=== PATIENT | male | born 2000 | race Caucasian/White ===

== ENCOUNTER 2023-09-07 13:23 | Outpatient (AMB) | payer OTHER, SELFPAY ==
[2023-09-07 13:27] VITALS: BP 130/88; PULSE 81; O2SAT 98; BMI 26.0
--- NOTE | 2023-09-07 13:27 | MHC.PC.OV ---
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 Allergies No Known Allergies Allergy (Verified 09/07/23 13:28) Medication List - Last Reconciled 09/07/23 by Irvin Agee MD finasteride 5 mg PO DAILY Tobacco use date assessed: 09/07/23 Dental Screening Dental Screen Date: 09/07/23 Did you have a dental visit in the last 12 months?: Yes Did you have a dental problem in the last 6 months where you did not have access to dental care?: No Was dental information given to patient?: Patient has dentist HPI SMALL BUSINESS DIRECTOR/ Requesting PE HPI Details Patient is 23-year-old gentleman came in today [facility] and physical exam appointment Patient have long standing history of anxiety but has never taken any medications He is now interested in treatment, both therapy and medication His anxiety is more social related, present with fever nervousness and epigastric discomfort I am starting him on fluoxetine 10 mg He also have history of acid reflux was given medication few years ago by a different prescriber omeprazole 20 mg Which patient took for a month and felt better but then he stopped and his symptoms came back I have sent omeprazole 20 mg to be taken 2 times a day for 3 months and we will re-evaluate after that to see if he still needs it for b.i.d. or once a day Also would recommend diet-controlled avoid acidic foods and alcoholic beverages. Lab order placed to be done fasting Follow-up 3 wks [facility] Social History Housing: Apartment Patient Tobacco Use Status: Never used Tobacco e-Cigarette/Vaping Use: Never Used Current occupational status: employed Cognitive needs: No Hearing needs: No Vision needs: No Questionnaire PHQ-9 Over the last 2 weeks, how often have you been bothered by any of the following problems? 1. Little interest or pleasure in doing things: several days 2. Feeling down, depressed, or hopeless: more than half the days 3. Trouble falling or staying asleep, or sleeping too much: nearly every day 4. Feeling tired or having little energy: nearly every day 5. Poor appetite or overeating: not at all 6. Feeling bad about yourself - or that you are a failure or have let yourself or your family down: nearly every day 7. Trouble concentrating on things, such as reading the newspaper or watching television: several days 8. Moving or speaking so slowly that other people could have noticed. Or the opposite - being so fidgety or restless that you have been moving around a lot more than usual: several days 9. Thoughts that you would be better off or of hurting yourself in some way: several days Total score: 15 Depression Screening Interpretation: Positive Depression Screening Follow-up: New Medication prescribed Depression Screening Done: Yes 92097 - PHQ-9 Billing: Yes Source: Developed by Drs. Rich Ramsay, Armida Berg, Isauro Villarreal and colleagues, with an educational gabriel from [employer]. Thrive Questionnaire Date Thrive assessed: 09/07/23 I am a: Patient What is your living situation today?: I have a steady place to live Within the past 12 months, did the food you bought not last and you didn't have the money to get more?: Never true Within the past 12 months, did you worry whether your food would run out before you got money to buy more?: Never true Do you have trouble paying for medicines?: No Do you have trouble getting transportation to medical appointments?: No Do you have trouble paying your heating and electricity bill?: No Do you have trouble taking care of your child, family member or friend?: No Do you have trouble with day-to-day activities such as bathing, preparing meals, shopping, managing finances, etc.?: No Are you currently unemployed and looking for a job?: No Are you interested in more education?: Yes Please select the resources that you would like help with: None Currently or been in a relationship where the following occur: no concerns reported AUDIT C Alcohol Use Questionnaire (AUDIT-C) 1. How often do you have a drink containing alcohol?: Monthly or less 2. How many drinks containing alcohol do you have on a typical day when you are drinking?: 1 or 2 3. How often do you have six or more drinks on one occasion?: Never Total Score: 1 Score Reviewed/Action Taken: Yes DANUTA-7 AMB Questionnaire DANUTA-7 Date DANUTA - 7 assessed: 09/07/23 Feeling nervous, anxious, or on edge: 3 = Nearly every day Not being able to stop or control worryin = Nearly every day Worrying too much about different things: 3 = Nearly every day Trouble relaxin = Several days Being so restless that it is hard to sit still: 1 = Several days Becoming easily annoyed or irritable: 0 = Not at all Feeling afraid as if something awful might happen: 3 = Nearly every day Total DANUTA-7 score (0-4 normal; 5-9 mild; 10-14 moderate; 15-21 severe): 14 Source: Developed by Drs. Rich Ramsay, Armida Berg, Isauro Villarreal and colleagues, with an educational gabriel from [employer]. DANUTA-7 Assessment Billing DANUTA-7 Assessment Tool: DANUTA-7 Assessment 27452 Review of Systems Const Denies chills, Denies fever(s) and Denies headache(s) Eyes Denies blurry vision ENT Denies headache(s), Denies nasal discharge, Denies nasal obstruction, Denies odynophagia and Denies sinus pain Card Denies chest pain at rest and Denies chest pain with activity Resp Denies cough and Denies hemoptysis GI Denies diarrhea, Denies odynophagia, Denies vomiting and Denies hematemesis Reports as per HPI Musc Denies abnormal gait Skin/Breast Reports as per HPI Neuro Denies Neuro-related abnormal movements, Denies Abnormal speech present, Denies abnormal gait, Denies headache(s) and Denies Sensory deficit (Neuro) Psych Denies mood swings and Denies paranoia Endo Reports as per HPI Syed/Lymph Reports as per HPI Aller/Immun Reports as per HPI Physical exam (Primary Care) Vital Signs: Last Vital Signs Pulse 81 09/07/23 13:27 BP 130/88 09/07/23 13:27 Pulse Ox 98 09/07/23 13:27 Oxygen Delivery Method Room Air 09/07/23 13:27 BMI result Body Mass Index 26.0 Tobacco/Smoking Status: Tobacco use Status Tobacco use date assessed 09/07/23 09/07/23 13:34 Patient Tobacco Use Status Never used Tobacco 09/07/23 13:34 e-Cigarette/Vaping Use Never Used 09/07/23 13:34 PHQ-9: PHQ-9 Score PHQ-9: Total score 15 09/07/23 13:39 Depression Screening Interpretation: Positive Depression Screening Follow-up: New Medication prescribed Thrive Assessment: Date of Thrive Assessment Date Thrive assessed 09/07/23 09/07/23 13:39 Currently or been in a relationship where the following occur: no concerns reported Const General: cooperative, comfortable and no acute distress Orientation/consciousness: patient oriented x3 HENMT Head: Yes normocephalic and Yes atraumatic Eyes General: appearance normal, both eyes and all related structures Pupils: Equal, round and reactive pupils present EOM: EOMs intact bilaterally Neck Neck: Yes supple and No lymphadenopathy Thyroid: Thyroid normal Lymphatic: no lymphadenopathy noted Chest Breast/axilla palpation: normal palpation of the breasts Resp Effort & Inspection: normal respiratory effort and able to speak in complete sentences Auscultation: clear to auscultation bilaterally Cardio Heart sounds: S1 normal heart sound present and S2 normal heart sound present GI Palpation (GI): Soft to palpation and nontender Auscultation: normal bowel sounds General: Yes no CVA tenderness Back/Spine/Pelvis Back: no CVA tenderness Skin General skin exam: elasticity normal and turgor normal Neuro General: patient oriented x3 and gait normal Cranial nerves: Yes Equal, round and reactive pupils present Speech: No Abnormal speech present Sensory Exam: No Sensory deficit (Neuro) Coordination: tandem gait normal and Romberg test negative Extrem General: Yes normal exam except as noted and No edema Assessment and Plan Assessment & Plan (1) Encounter for general adult medical examination with abnormal findings: Code(s): Z00.01 - Encounter for general adult medical examination with abnormal findings (2) Anxiety, generalized: Code(s): F41.1 - Generalized anxiety disorder (3) Chronic GERD: Code(s): K21.9 - Gastro-esophageal reflux disease without esophagitis Plan Patient is 23-year-old gentleman came in today for his initial in establish care and physical exam appointment Patient have long standing history of anxiety but has never taken any medications He is now interested in treatment, both therapy and medication His anxiety is more social related, present with fever nervousness and epigastric discomfort I am starting him on fluoxetine 10 mg He also have history of acid reflux was given medication few years ago by a different prescriber omeprazole 20 mg Which patient took for a month and felt better but then he stopped and his symptoms came back I have sent omeprazole 20 mg to be taken 2 times a day for 3 months and we will re-evaluate after that to see if he still needs it for b.i.d. or once a day Also would recommend diet-controlled avoid acidic foods and alcoholic beverages. Lab order placed to be done fasting Follow-up 3 wks Orders: Orders Complete Blood Count Auto Diff Today F41.1 - Generalized anxiety disorder, K21.9 - Gastro-esophageal reflux disease without esophagitis, Z00.01 - Encounter for general adult medical examination with abnormal findings Comprehensive [place]. Panel Fast Today F41.1 - Generalized anxiety disorder, K21.9 - Gastro-esophageal reflux disease without esophagitis, Z00.01 - Encounter for general adult medical examination with abnormal findings TSH reflex Free T4 Today F41.1 - Generalized anxiety disorder, K21.9 - Gastro-esophageal reflux disease without esophagitis, Z00.01 - Encounter for general adult medical examination with abnormal findings Lipid Panel Today F41.1 - Generalized anxiety disorder, K21.9 - Gastro-esophageal reflux disease without esophagitis, Z00.01 - Encounter for general adult medical examination with abnormal findings Medications: New fluoxetine 10 mg PO DAILY 30 caps 0RF omeprazole 20 mg PO BID 180 caps 0RF 90 days Coding Level of Care Code New Pt Prev Care 18-39yr(98059 Diagnoses Encounter for general adult medical examination with abnormal findings Z00.01 Anxiety, generalized F41.1 Chronic GERD K21.9 Additional Codes DANUTA-7 Assessment Billing - DANUTA-7 Assessment Tool: DANUTA-7 Assessment [id number] ([id number])
== END 2023-09-07 13:53 | disposition home or self-care (01) ==
PROVIDERS: PCP Internal Medicine; Visit Provider Internal Medicine
DX: Z00.00 Encounter for general adult medical examination without abnormal findings (principal); F41.1 Generalized anxiety disorder; K21.9 Gastro-esophageal reflux disease without esophagitis
CPT/HCPCS: 96127; 99385

== ENCOUNTER 2023-09-20 13:44 | Outpatient (REF) | payer OTHER, SELFPAY ==
[2023-09-20 16:07] LABS: MANUAL DIFF FLAG NO
[2023-09-20 16:27] LABS: Basophils Absolute Auto 0.1 X10*3/uL (0.0-0.2); Basophils Percent Auto 1.3 % (0-2); Eosinophils Absolute Auto 0.1 X10*3/uL (0.0-0.4); Eosinophils Percent Auto 2.1 % (0-4); Hematocrit 43.3 % (42.0-52.0); Hemoglobin 14.6 g/dl (14.0-18.0); Imm Gran Abs Auto 0.01 X10*3/uL (0.00-0.03); Imm Gran Pct Auto 0.2 % (0.0-0.4); Lymphocytes Absolute Auto 2.2 X10*3/uL (1.2-4.9); Lymphocytes Percent Auto 46.2 % (20-40); Mean Corpuscular HGB Conc 33.7 g/dl (31.0-36.0); Mean Corpuscular Hemoglobin 29.7 pg (27.0-33.0); Mean Corpuscular Volume 88.2 fL (80.0-98.0); Monocytes Absolute Auto 0.5 X10*3/uL (0.1-1.2); Monocytes Percent Auto 10.6 % (2-11); Neutrophils Absolute Auto 1.9 x10*3/uL (2.0-8.3); Neutrophils Percent Auto 39.6 % (45-73); Platelet Count 273 X10*3/uL (160-400); Red Blood Count 4.91 X10*6/uL (4.60-5.80); Red Cell Distribution Width 12.1 % (11.0-16.0); White Blood Count 4.7 X10*3/uL (4.8-10.8)
[2023-09-20 16:32] LABS: Alanine Aminotransferase 21 U/L (0-40); Albumin Level 4.4 g/dL (3.5-5.0); Alkaline Phosphatase 57 U/L (39-117); Anion Gap 11 (12-20); Aspartate Amino Transferase 17 U/L (5-37); Bilirubin Total 1.2 mg/dL (0.0-1.0); Blood Urea Nitrogen 9 mg/dL (9-16); Calcium 9.2 mg/dL (8.4-10.2); Carbon Dioxide 28 mmol/L (22-29); Chloride 106 mmol/L (96-108); Cholesterol 119 mg/dL (<200); Estimated Glomerular Filt Rate > 60; Glucose Fasting 91 mg/dL (60-99); HDL Cholesterol 41 mg/dL (>40); LDL Cholesterol Calculated 70 mg/dL (<100); Potassium 3.8 mmol/L (3.3-5.1); Sodium 141 mmol/L (135-145); Triglycerides 44 mg/dL (<150)
[2023-09-20 16:50] LABS: TSH reflex Free T4 0.92 uIU/mL (0.32-4.0)
== END 2023-09-20 13:45 | disposition home or self-care (01) ==
LOC: HO.HMGCLDS 13:44
PROVIDERS: PCP Internal Medicine; Visit Provider Internal Medicine
DX: Z00.01 Encounter for general adult medical examination with abnormal findings (principal); F41.1 Generalized anxiety disorder; K21.9 Gastro-esophageal reflux disease without esophagitis
CPT/HCPCS: 36415; 80053; 80061; 84443; 85025

== ENCOUNTER 2023-09-25 14:08 | Outpatient (AMB) | payer OTHER, SELFPAY ==
[2023-09-25 14:09] VITALS: BP 124/84; PULSE 79; O2SAT 97; BMI 25.5
--- NOTE | 2023-09-25 14:09 | A.OFFPC_ITS ---
Vital Signs 09/25/23 14:09 Height 5 ft 7 in Weight 163 lb BMI 25.5 BP 124/84 Blood Pressure Location Rt brachial Position Sitting Pulse 79 Pulse Source Pulse Oximeter Pulse Oximetry (%) 97 Oxygen Delivery Method Room Air Intake Visit Reasons: 3W follow up Allergies No Known Allergies Allergy (Verified 09/25/23 14:09) Medication List - Last Reconciled 09/25/23 by Irvin Agee MD finasteride 5 mg PO DAILY fluoxetine 10 mg PO DAILY omeprazole 20 mg PO BID 90 days Tobacco use date assessed: 09/25/23 Dental Screening Dental Screen Date: 09/25/23 Did you have a dental visit in the last 12 months?: Yes Did you have a dental problem in the last 6 months where you did not have access to dental care?: No Was dental information given to patient?: Patient has dentist HPI 3W follow up HPI Details Patient came in today to go over his labs Paperwork filled for his job And to follow-up on anxiety He is taking fluoxetine 10 mg and is tolerating medication however continued to have anxiety I have increased the dose to 20 mg. Patient was started on omeprazole b.i.d. last visit when he verbalized to feeling acid reflux and epigastric discomfort He is still having symptoms, I have placed a referral for him to see gastroenterology We will book a follow-up appointment in 2 and half month for anxiety. Labs reviewed with the patient his total bili is slightly elevated but other liver enzymes are within normal limit. [facility] Social History Housing: Apartment Patient Tobacco Use Status: Never used Tobacco e-Cigarette/Vaping Use: Never Used Current occupational status: employed Cognitive needs: No Hearing needs: No Vision needs: No Questionnaire Thrive Questionnaire Date Thrive assessed: 09/07/23 DANUTA-7 AMB Questionnaire DANUTA-7 Date DANUTA - 7 assessed: 09/07/23 Source: Developed by Drs. Rich Ramsay, Armida Berg, Isauro Villarreal and colleagues, with an educational gabriel from [employer]. Review of Systems Const Denies chills and Denies fever(s) ENT Denies epistaxis and Denies nasal discharge Card Denies chest pain Resp Denies chest congestion, Denies cough and Denies hemoptysis GI Denies diarrhea and Denies nausea Skin/Breast Denies rash Neuro Reports no additional complaints Psych Reports no additional complaints Endo Reports no additional complaints Physical exam (Primary Care) Vital Signs: Last Vital Signs Pulse 79 09/25/23 14:09 BP 124/84 09/25/23 14:09 Pulse Ox 97 09/25/23 14:09 Oxygen Delivery Method Room Air 09/25/23 14:09 BMI result Body Mass Index 25.5 Tobacco/Smoking Status: Tobacco use Status Tobacco use date assessed 09/25/23 09/25/23 14:14 Patient Tobacco Use Status Never used Tobacco 09/25/23 14:14 e-Cigarette/Vaping Use Never Used 09/25/23 14:14 Thrive Assessment: Date of Thrive Assessment Date Thrive assessed 09/07/23 09/25/23 14:14 Const General: cooperative, comfortable and no acute distress Orientation/consciousness: patient oriented x3 HENMT Head: Yes normocephalic Eyes General: appearance normal, both eyes and all related structures Neck Neck: Yes supple Resp Effort & Inspection: normal respiratory effort, no cough and no stridor Cardio Rhythm: regular rhythm Heart sounds: S1 normal heart sound present and S2 normal heart sound present Skin General skin exam: turgor normal Neuro General: patient oriented x3, tone normal and moves all extremities Extrem Right lower extremity: no edema Left lower extremity: no edema Assessment and Plan Assessment & Plan (1) Chronic GERD: Code(s): K21.9 - Gastro-esophageal reflux disease without esophagitis (2) Epigastric discomfort: Code(s): R10.13 - Epigastric pain (3) Anxiety, generalized: Code(s): F41.1 - Generalized anxiety disorder Plan Patient came in today to go over his labs Paperwork filled for his job And to follow-up on anxiety He is taking fluoxetine 10 mg and is tolerating medication however continued to have anxiety I have increased the dose to 20 mg. Patient was started on omeprazole b.i.d. last visit when he verbalized to feeling acid reflux and epigastric discomfort He is still having symptoms, I have placed a referral for him to see gastroenterology We will book a follow-up appointment in 2 and half month for anxiety. Labs reviewed with the patient his total bili is slightly elevated but other liver enzymes are within normal limit. Orders: Referrals Gastroenterology Referral K21.9 - Gastro-esophageal reflux disease without esophagitis, R10.13 - Epigastric pain Medications: Changed From fluoxetine 10 mg PO DAILY 30 caps 0RF To fluoxetine 20 mg PO DAILY 90 caps 0RF 90 days Coding Level of Care Code Est Pt Level 4 (37369) Diagnoses Chronic GERD K21.9 Epigastric discomfort R10.13 Anxiety, generalized F41.1
== END 2023-09-25 14:43 | disposition home or self-care (01) ==
PROVIDERS: PCP Internal Medicine; Visit Provider Internal Medicine
DX: K21.9 Gastro-esophageal reflux disease without esophagitis (principal); R10.13 Epigastric pain; F41.1 Generalized anxiety disorder
CPT/HCPCS: 99214

== ENCOUNTER 2023-12-13 07:36 | Outpatient (AMB) | payer OTHER, SELFPAY ==
--- NOTE | 2023-12-13 08:40 | MHC.PC.OV ---
Vital Signs 12/13/23 08:41 Height 5 ft 7 in Intake Visit Reasons: 2 month fu ([phone]) Allergies No Known Allergies Allergy (Verified 09/25/23 14:09) Medication List - Last Reconciled 12/13/23 by Irvin Agee MD finasteride 5 mg PO DAILY fluoxetine 20 mg PO DAILY 90 days omeprazole 20 mg PO BID 90 days Tobacco use date assessed: 12/13/23 Dental Screening Dental Screen Date: 12/13/23 Did you have a dental visit in the last 12 months?: Yes Did you have a dental problem in the last 6 months where you did not have access to dental care?: No Was dental information given to patient?: Patient has dentist HPI 2 month fu ([phone]) HPI Details Patient is 23-year-old male who suffers from anxiety and depression Initially he did well with fluoxetine, but today he tells me that he is having suicidal ideations, I am stopping the fluoxetine Patient is trying to get in touch with therapist He tells me that he will not implement any of these thoughts I am changing the medication to Seroquel 25 mg patient is to start taking that at night Continue with omeprazole up to 2 times a day as needed, patient never saw technical healthcare consultant, he says that the medication is helping him He is also taking fenestrated for hair loss and is requesting a script which I have sent for him Follow-up 3 weeks for starting Seroquel Patient was notifi that he is to reach to me 1st if he start planning to hurt him self I will also send message to our behavior health coordinator so she can not call the patient [facility] Social History Housing: Apartment Patient Tobacco Use Status: Never used Tobacco e-Cigarette/Vaping Use: Never Used Current occupational status: employed Cognitive needs: No Hearing needs: No Vision needs: No Questionnaire PHQ-9 Over the last 2 weeks, how often have you been bothered by any of the following problems? 1. Little interest or pleasure in doing things: not at all 2. Feeling down, depressed, or hopeless: not at all 3. Trouble falling or staying asleep, or sleeping too much: more than half the days 4. Feeling tired or having little energy: more than half the days 5. Poor appetite or overeating: not at all 6. Feeling bad about yourself - or that you are a failure or have let yourself or your family down: several days 7. Trouble concentrating on things, such as reading the newspaper or watching television: not at all 8. Moving or speaking so slowly that other people could have noticed. Or the opposite - being so fidgety or restless that you have been moving around a lot more than usual: not at all 9. Thoughts that you would be better off or of hurting yourself in some way: not at all Total score: 5 Depression Screening Interpretation: Negative Depression Screening Done: Yes [id number] - PHQ-9 Billing: Yes Source: Developed by Drs. Rich Ramsay, Armida Berg, Isauro Villarreal and colleagues, with an educational gabriel from [employer]. Thrive Questionnaire Date Thrive assessed: 12/13/23 I am a: Patient What is your living situation today?: I have a steady place to live Within the past 12 months, did the food you bought not last and you didn't have the money to get more?: Never true Within the past 12 months, did you worry whether your food would run out before you got money to buy more?: Never true Do you have trouble paying for medicines?: No Do you have trouble getting transportation to medical appointments?: No Do you have trouble paying your heating and electricity bill?: No Do you have trouble taking care of your child, family member or friend?: No Do you have trouble with day-to-day activities such as bathing, preparing meals, shopping, managing finances, etc.?: No Are you currently unemployed and looking for a job?: No Are you interested in more education?: No Please select the resources that you would like help with: None Currently or been in a relationship where the following occur: no concerns reported THRIVE Score: 0 AUDIT C Alcohol Use Questionnaire (AUDIT-C) 1. How often do you have a drink containing alcohol?: Monthly or less 2. How many drinks containing alcohol do you have on a typical day when you are drinking?: 3 or 4 3. How often do you have six or more drinks on one occasion?: Never Total Score: 2 Score Reviewed/Action Taken: Yes DANUTA-7 AMB Questionnaire DANUTA-7 Date DANUTA - 7 assessed: 09/07/23 Feeling nervous, anxious, or on edge: 3 = Nearly every day Not being able to stop or control worryin = Nearly every day Worrying too much about different things: 3 = Nearly every day Trouble relaxin = More than half the days Being so restless that it is hard to sit still: 2 = More than half the days Becoming easily annoyed or irritable: 0 = Not at all Feeling afraid as if something awful might happen: 1 = Several days Total DANUTA-7 score (0-4 normal; 5-9 mild; 10-14 moderate; 15-21 severe): 14 Source: Developed by Drs. Rich Ramsay, Armida Berg, Isauro Villarreal and colleagues, with an educational gabriel from [employer]. DNAUTA-7 Assessment Billing DANUTA-7 Assessment Tool: DANUTA-7 Assessment 95497 Review of Systems Const Denies chills and Denies fever(s) ENT Denies epistaxis and Denies nasal discharge Card Denies chest pain Resp Denies chest congestion, Denies cough and Denies hemoptysis GI Denies diarrhea and Denies nausea Skin/Breast Denies rash Neuro Reports no additional complaints Psych Reports no additional complaints Endo Reports no additional complaints Physical exam (Primary Care) Tobacco/Smoking Status: Tobacco use Status Tobacco use date assessed 12/13/23 12/13/23 08:41 Patient Tobacco Use Status Never used Tobacco 12/13/23 08:41 e-Cigarette/Vaping Use Never Used 12/13/23 08:41 PHQ-9: PHQ-9 Score PHQ-9: Total score 5 12/13/23 09:29 Depression Screening Interpretation: Negative Thrive Assessment: Date of Thrive Assessment Date Thrive assessed 12/13/23 12/13/23 08:50 Currently or been in a relationship where the following occur: no concerns reported Telehealth Telehealth Location of provider rendering services: practice address Location of patient: address on file Patient Identification confirmed using: Name, : Yes Telehealth method: voice only Patient verbally consented to treatment: Yes Patient verbally consented to billing insurance company: Yes Patient informed of any privacy concerns related to visit: Yes Minutes spent on Phone/Video with Pt.: 16 Assessment and Plan Assessment & Plan (1) Major depression, recurrent: Code(s): F33.9 - Major depressive disorder, recurrent, unspecified Qualifiers: Active/Remission status: currently active Major depression episode severity: severe Psychotic features: without psychotic features Qualified Code(s): F33.2 - Major depressive disorder, recurrent severe without psychotic features (2) Suicidal ideation: Code(s): R45.851 - Suicidal ideations (3) Chronic GERD: Code(s): K21.9 - Gastro-esophageal reflux disease without esophagitis (4) Epigastric discomfort: Code(s): R10.13 - Epigastric pain (5) Anxiety, generalized: Code(s): F41.1 - Generalized anxiety disorder Plan Patient is 23-year-old male who suffers from anxiety and depression Initially he did well with fluoxetine, but today he tells me that he is having suicidal ideations, I am stopping the fluoxetine Patient is trying to get in touch with therapist He tells me that he will not implement any of these thoughts I am changing the medication to Seroquel 25 mg patient is to start taking that at night Continue with omeprazole up to 2 times a day as needed, patient never saw technical healthcare consultant, he says that the medication is helping him He is also taking fenestrated for hair loss and is requesting a script which I have sent for him Follow-up 3 weeks for starting Seroquel Patient was notifi that he is to reach to me 1st if he start planning to hurt him self I will also send message to our behavior health coordinator so she can not call the patient Medications: New quetiapine (Seroquel) 25 mg PO BEDTIME 30 tabs 0RF finasteride 5 mg PO DAILY 90 tabs 0RF Refilled omeprazole 20 mg PO BID 180 caps 0RF 90 days Discontinued fluoxetine Discontinued Reason: Doctor's Order 20 mg PO DAILY 90 days 90 caps 0RF Coding Level of Care Code Tele Est Pt Level 4 (10161) Diagnoses Severe episode of recurrent major depressive disorder, without psychotic features F33.2 Active/Remission status: currently active Major depression episode severity: severe Psychotic features: without psychotic features Suicidal ideation R45.851 Chronic GERD K21.9 Epigastric discomfort R10.13 Anxiety, generalized F41.1 Additional Codes DANUTA-7 Assessment Billing - DANUTA-7 Assessment Tool: DANUTA-7 Assessment 05882 ([id number]) Time Spent (min) 30 Comment 15 with patient, 5 prep, 5 charting, 5 coordination of care
== END 2023-12-13 11:52 | disposition home or self-care (01) ==
LOC: HO.HMGC 07:36
PROVIDERS: PCP Internal Medicine; Visit Provider Internal Medicine
DX: F33.2 Major depressive disorder, recurrent severe without psychotic features (principal); R45.851 Suicidal ideations; K21.9 Gastro-esophageal reflux disease without esophagitis; R10.13 Epigastric pain; F41.1 Generalized anxiety disorder
CPT/HCPCS: 99214

== ENCOUNTER 2023-12-20 08:09 | Outpatient (AMB) | payer OTHER, SELFPAY ==
--- NOTE | 2023-12-20 08:11 | MHC.PC.OV ---
"Intake Visit Reasons: 3 Wk F/u~[phone] Allergies No Known Allergies Allergy (Verified 12/20/23 08:11) Medication List - Last Reconciled 12/20/23 by Irvin Agee MD finasteride 1 mg PO DAILY omeprazole 20 mg PO BID 90 days quetiapine (Seroquel) 25 mg PO BEDTIME Tobacco use date assessed: 12/13/23 HPI 3 Wk F/u~[phone] HPI Details Patient is 23-year-old gentleman with severe depression I started him on Seroquel 25 mg 3 weeks ago Patient tells me that he is feeling much better there are no more suicidal thoughts He is able to sleep better however he feels that the dose is not strong enough We will be increasing it to 50 mg and I will set up another follow-up time in 3 weeks. [facility] Social History Housing: Apartment Patient Tobacco Use Status: Never used Tobacco e-Cigarette/Vaping Use: Never Used Current occupational status: employed Cognitive needs: No Hearing needs: No Vision needs: No Questionnaire Thrive Questionnaire Date Thrive assessed: 12/13/23 DANUTA-7 AMB Questionnaire DANUTA-7 Date DANUTA - 7 assessed: 09/07/23 Source: Developed by Drs. Rich Ramsay, Armida Berg, Isauro Villarreal and colleagues, with an educational gabriel from [employer]. Review of Systems Const Denies chills and Denies fever(s) ENT Denies epistaxis and Denies nasal discharge Card Denies chest pain Resp Denies chest congestion, Denies cough and Denies hemoptysis GI Denies diarrhea and Denies nausea Skin/Breast Denies rash Neuro Reports no additional complaints Psych Reports no additional complaints Endo Reports no additional complaints Physical exam (Primary Care) Tobacco/Smoking Status: Tobacco use Status Tobacco use date assessed 12/13/23 12/20/23 08:11 Patient Tobacco Use Status Never used Tobacco 12/20/23 08:11 e-Cigarette/Vaping Use Never Used 12/20/23 08:11 Thrive Assessment: Date of Thrive Assessment Date Thrive assessed 12/13/23 12/20/23 08:11 Telehealth Telehealth Location of provider rendering services: practice address Location of patient: address on file Patient Identification confirmed using: Name, : Yes Telehealth method: voice only Patient verbally consented to treatment: Yes Patient verbally consented to billing insurance company: Yes Patient informed of any privacy concerns related to visit: Yes Minutes spent on Phone/Video with Pt.: 13 Assessment and Plan Assessment & Plan (1) Major depression, recurrent: Code(s): F33.9 - Major depressive disorder, recurrent, unspecified Qualifiers: Active/Remission status: currently active Major depression episode severity: severe Psychotic features: without psychotic features Qualified Code(s): F33.2 - Major depressive disorder, recurrent severe without psychotic features (2) Suicidal ideation: Code(s): R45.851 - Suicidal ideations (3) Anxiety, generalized: Code(s): F41.1 - Generalized anxiety disorder Plan Patient is 23-year-old gentleman with severe depression I started him on Seroquel 25 mg 3 weeks ago Patient tells me that he is feeling much better there are no more suicidal thoughts He is able to sleep better however he feels that the dose is not strong enough We will be increasing it to 50 mg and I will set up another follow-up time in 3 weeks. Medications: Changed From quetiapine (Seroquel) 25 mg PO BEDTIME 30 tabs 0RF To quetiapine 50 mg PO BEDTIME 30 tabs 0RF 30 days Coding Level of Care Code Tele Est Pt Level 3 (14637) Diagnoses Severe episode of recurrent major depressive disorder, without psychotic features F33.2 Active/Remission status: currently active Major depression episode severity: severe Psychotic features: without psychotic features Suicidal ideation R45.851 Anxiety, generalized F41.1"
== END 2023-12-20 16:05 | disposition home or self-care (01) ==
LOC: HO.HMGC 08:09
PROVIDERS: PCP Internal Medicine; Visit Provider Internal Medicine
DX: F33.2 Major depressive disorder, recurrent severe without psychotic features (principal); R45.851 Suicidal ideations; F41.1 Generalized anxiety disorder
CPT/HCPCS: 99213

== ENCOUNTER 2024-01-10 08:28 | Outpatient (AMB) | payer OTHER, SELFPAY ==
--- NOTE | 2024-01-10 09:27 | MHC.PC.OV ---
Intake Visit Reasons: 3 wk F/u~ Allergies No Known Allergies Allergy (Verified 12/20/23 08:11) Medication List - Last Reconciled 01/10/24 by Irvin Agee MD finasteride 1 mg PO DAILY omeprazole 20 mg PO BID 90 days quetiapine 50 mg PO BEDTIME 30 days Tobacco use date assessed: 12/13/23 HPI 3 wk F/u~ HPI Details Patient is feeling much better taking Seroquel 50 mg He tells me that both his brothers and both his parents have a history of depression and his father is taking Seroquel for the past 2 years Patient is questioning if he will be able to get off the medication He will see me back in 3 months and then we will re-evaluate the situation However due to such a strong family history it might be difficult for patient to get off the medication Patient is aware of that. Meanwhile he is to continue with Seroquel 50 mg No side effects PFSH Social History Housing: Apartment Patient Tobacco Use Status: Never used Tobacco e-Cigarette/Vaping Use: Never Used Current occupational status: employed Cognitive needs: No Hearing needs: No Vision needs: No Questionnaire Thrive Questionnaire Date Thrive assessed: 12/13/23 DANUTA-7 AMB Questionnaire DANUTA-7 Date DANUTA - 7 assessed: 09/07/23 Source: Developed by Drs. Rich Ramsay, Armida Berg, Isauro Villarreal and colleagues, with an educational gabriel from [employer]. Review of Systems Const Denies chills and Denies fever(s) ENT Denies epistaxis and Denies nasal discharge Card Denies chest pain Resp Denies chest congestion, Denies cough and Denies hemoptysis GI Denies diarrhea and Denies nausea Skin/Breast Denies rash Neuro Reports no additional complaints Psych Reports no additional complaints Endo Reports no additional complaints Physical exam (Primary Care) Tobacco/Smoking Status: Tobacco use Status Tobacco use date assessed 12/13/23 01/10/24 09:29 Patient Tobacco Use Status Never used Tobacco 01/10/24 09:29 e-Cigarette/Vaping Use Never Used 01/10/24 09:29 Thrive Assessment: Date of Thrive Assessment Date Thrive assessed 12/13/23 01/10/24 09:29 Telehealth Telehealth Location of provider rendering services: practice address Location of patient: address on file Patient Identification confirmed using: Name, : Yes Telehealth method: video (attempted) Patient verbally consented to treatment: Yes Patient verbally consented to billing insurance company: Yes Patient informed of any privacy concerns related to visit: Yes Minutes spent on Phone/Video with Pt.: 13 Assessment and Plan Assessment & Plan (1) Major depression, recurrent: Code(s): F33.9 - Major depressive disorder, recurrent, unspecified Qualifiers: Active/Remission status: currently active Major depression episode severity: severe Psychotic features: without psychotic features Qualified Code(s): F33.2 - Major depressive disorder, recurrent severe without psychotic features (2) Anxiety, generalized: Code(s): F41.1 - Generalized anxiety disorder Plan Patient is feeling much better taking Seroquel 50 mg He tells me that both his brothers and both his parents have a history of depression and his father is taking Seroquel for the past 2 years Patient is questioning if he will be able to get off the medication He will see me back in 3 months and then we will re-evaluate the situation However due to such a strong family history it might be difficult for patient to get off the medication Patient is aware of that. Meanwhile he is to continue with Seroquel 50 mg No side effects No suicidal ideations anymore Medications: Changed From quetiapine 50 mg PO BEDTIME 30 days 30 tabs 0RF To quetiapine 50 mg PO BEDTIME 90 tabs 0RF 90 days Coding Level of Care Code Tele Est Pt Level 3 (15342) Diagnoses Severe episode of recurrent major depressive disorder, without psychotic features F33.2 Active/Remission status: currently active Major depression episode severity: severe Psychotic features: without psychotic features Anxiety, generalized F41.1
== END 2024-01-10 12:36 | disposition home or self-care (01) ==
LOC: HO.HMGC 08:28
PROVIDERS: PCP Internal Medicine; Visit Provider Internal Medicine
DX: F33.2 Major depressive disorder, recurrent severe without psychotic features (principal); F41.1 Generalized anxiety disorder
CPT/HCPCS: 99213

== ENCOUNTER 2024-04-10 06:58 | Outpatient (AMB) | payer OTHER, SELFPAY ==
--- NOTE | 2024-04-10 08:57 | A.OFFPC_ITS ---
Intake Visit Reasons: 3 M f/u depression~ Allergies No Known Allergies Allergy (Verified 04/10/24 09:08) Medication List - Last Reconciled 04/10/24 by Irvin Agee MD finasteride 1 mg PO DAILY omeprazole 20 mg PO BID 90 days quetiapine 50 mg PO BEDTIME 90 days Tobacco use date assessed: 04/10/24 Dental Screening Dental Screen Date: 04/10/24 Did you have a dental visit in the last 12 months?: Yes Did you have a dental problem in the last 6 months where you did not have access to dental care?: No Was dental information given to patient?: Patient has dentist HPI 3 M f/u depression~ HPI Details this is telemed visit f.u Patient has strong family Hx of sever depression and he himself also suffering from same Seroquel has helped him, he is tolerating medcation but has gained wt Patient states since dec he has gained about 20 lbs but he dont want to get off the med, as he is doing so well Psychologically he is also due for labs, order placed Pt notified we will continue med for now, i ll book another visit in 4 wks to see if he is gaining more wt GERD is stable with PPI he is also on fenestride for hair lose all three med refill sent patient is moving in Aug to different [place] [facility] Social History Housing: Apartment Patient Tobacco Use Status: Never used Tobacco e-Cigarette/Vaping Use: Never Used Current occupational status: employed Cognitive needs: No Hearing needs: No Vision needs: No Questionnaire Thrive Questionnaire Date Thrive assessed: 12/13/23 AUDIT C Alcohol Use Questionnaire (AUDIT-C) 1. How often do you have a drink containing alcohol?: Never 3. How often do you have six or more drinks on one occasion?: Never Total Score: 0 Score Reviewed/Action Taken: Yes DANUTA-7 AMB Questionnaire DANUTA-7 Date DANUTA - 7 assessed: 09/07/23 Source: Developed by Drs. Rich Ramsay, Armida Berg, Isauro Villarreal and colleagues, with an educational gabriel from [employer]. Review of Systems Const Denies chills and Denies fever(s) ENT Denies epistaxis and Denies nasal discharge Card Denies chest pain Resp Denies chest congestion, Denies cough and Denies hemoptysis GI Denies diarrhea and Denies nausea Skin/Breast Denies rash Neuro Reports no additional complaints Psych Reports no additional complaints Endo Reports no additional complaints Physical exam (Primary Care) Tobacco/Smoking Status: Tobacco use Status Tobacco use date assessed 12/13/23 04/10/24 08:57 Patient Tobacco Use Status Never used Tobacco 04/10/24 08:57 e-Cigarette/Vaping Use Never Used 04/10/24 08:57 Thrive Assessment: Date of Thrive Assessment Date Thrive assessed 12/13/23 04/10/24 08:57 Telehealth Telehealth Telehealth Platform: [employer] Location of provider rendering services: practice address Location of patient: address on file Patient Identification confirmed using: Name, : Yes Telehealth method: video (attempted) Patient verbally consented to treatment: Yes Patient verbally consented to billing insurance company: Yes Patient informed of any privacy concerns related to visit: Yes Minutes spent on Phone/Video with Pt.: 14 Assessment and Plan Assessment & Plan (1) Major depression, recurrent: Code(s): F33.9 - Major depressive disorder, recurrent, unspecified Qualifiers: Active/Remission status: currently active Major depression episode severity: severe Psychotic features: without psychotic features Qualified Code(s): F33.2 - Major depressive disorder, recurrent severe without psychotic features (2) Anxiety, generalized: Code(s): F41.1 - Generalized anxiety disorder (3) Chronic GERD: Code(s): K21.9 - Gastro-esophageal reflux disease without esophagitis (4) Weight gain: Code(s): R63.5 - Abnormal weight gain Plan this is telemed visit f.u Patient has strong family Hx of sever depression and he himself also suffering from same Seroquel has helped him, he is tolerating medcation but has gained wt Patient states since dec he has gained about 20 lbs but he dont want to get off the med, as he is doing so well Psychologically he is also due for labs, order placed Pt notified we will continue med for now, i ll book another visit in 4 wks to see if he is gaining more wt GERD is stable with PPI he is also on fenestride for hair lose all three med refill sent patient is moving in Oct to different [place] Orders: Orders Complete Blood Count Auto Diff Today F33.2 - Major depressive disorder, recurrent severe without psychotic features, F41.1 - Generalized anxiety disorder, K21.9 - Gastro-esophageal reflux disease without esophagitis, R63.5 - Abnormal weight gain Comprehensive Met. Panel Today F33.2 - Major depressive disorder, recurrent severe without psychotic features, F41.1 - Generalized anxiety disorder, K21.9 - Gastro-esophageal reflux disease without esophagitis, R63.5 - Abnormal weight gain TSH reflex Free T4 Today F33.2 - Major depressive disorder, recurrent severe w ithout psychotic features, F41.1 - Generalized anxiety disorder, K21.9 - Gastro- esophageal reflux disease without esophagitis, R63.5 - Abnormal weight gain Coding Level of Care Code Tele Est Pt Level 3 (89931) Diagnoses Severe episode of recurrent major depressive disorder, without psychotic features F33.2 Active/Remission status: currently active Major depression episode severity: severe Psychotic features: without psychotic features Anxiety, generalized F41.1 Chronic GERD K21.9 Weight gain R63.5
== END 2024-04-10 13:41 | disposition home or self-care (01) ==
LOC: HO.HMGC 06:58
PROVIDERS: PCP Internal Medicine; Visit Provider Internal Medicine
DX: K21.9 Gastro-esophageal reflux disease without esophagitis (principal); F33.2 Major depressive disorder, recurrent severe without psychotic features; F41.1 Generalized anxiety disorder; R63.5 Abnormal weight gain
CPT/HCPCS: 99213

== ENCOUNTER 2024-05-08 08:16 | Outpatient (AMB) | payer OTHER, SELFPAY ==
--- NOTE | 2024-05-08 08:36 | MHC.PC.OV ---
Intake Visit Reasons: 4Wk F/u~ [phone] Allergies No Known Allergies Allergy (Verified 04/10/24 09:08) Tobacco use date assessed: 04/10/24 Dental Screening Dental Screen Date: 04/10/24 [facility] Social History Housing: Apartment Patient Tobacco Use Status: Never used Tobacco e-Cigarette/Vaping Use: Never Used Current occupational status: employed Cognitive needs: No Hearing needs: No Vision needs: No Questionnaire Thrive Questionnaire Date Thrive assessed: 12/13/23 DANUTA-7 AMB Questionnaire DANUTA-7 Date DANUTA - 7 assessed: 09/07/23 Source: Developed by Drs. Rich Ramsay, Armida Berg, Isauro Villarreal and colleagues, with an educational gabriel from [employer]. Physical exam (Primary Care) Tobacco/Smoking Status: Tobacco use Status Tobacco use date assessed 04/10/24 04/10/24 09:08 Patient Tobacco Use Status Never used Tobacco 04/10/24 08:57 e-Cigarette/Vaping Use Never Used 04/10/24 08:57 Thrive Assessment: Date of Thrive Assessment Date Thrive assessed 12/13/23 04/10/24 08:57 Coding
--- NOTE | 2024-05-08 09:31 | MHC.PC.OV ---
Intake Visit Reasons: 4Wk F/u~ [phone] Allergies No Known Allergies Allergy (Verified 04/10/24 09:08) Medication List - Last Reconciled 05/08/24 by Irvin Agee MD finasteride 1 mg PO DAILY omeprazole 20 mg PO BID 90 days quetiapine 50 mg PO BEDTIME 90 days Tobacco use date assessed: 04/10/24 Dental Screening Dental Screen Date: 04/10/24 HPI 4Wk F/u~ [phone] HPI Details Patient has strong family Hx of sever depression He himself has long history of depression as well Seroquel has helped him, he is tolerating medcation but has gained wt Patient states since dec he has gained about 20 lbs, but it has stablized now he has not gained any more wt since last one month but he dont want to get off the med, as he is doing so well Psychologically GERD is stable with PPI he is also on fenestride for hair lose patient is moving in Aug to [place] [facility] Social History Housing: Apartment Patient Tobacco Use Status: Never used Tobacco e-Cigarette/Vaping Use: Never Used Current occupational status: employed Cognitive needs: No Hearing needs: No Vision needs: No Questionnaire Thrive Questionnaire Date Thrive assessed: 12/13/23 DANUTA-7 AMB Questionnaire DANUTA-7 Date DANUTA - 7 assessed: 09/07/23 Source: Developed by Drs. Rich Ramsay, Armida Berg, Isauro Villarreal and colleagues, with an educational gabriel from [employer]. Review of Systems Const Denies chills and Denies fever(s) ENT Denies epistaxis and Denies nasal discharge Card Denies chest pain Resp Denies chest congestion, Denies cough and Denies hemoptysis GI Denies diarrhea and Denies nausea Skin/Breast Denies rash Neuro Reports no additional complaints Psych Reports no additional complaints Endo Reports no additional complaints Physical exam (Primary Care) Tobacco/Smoking Status: Tobacco use Status Tobacco use date assessed 04/10/24 05/08/24 09:32 Patient Tobacco Use Status Never used Tobacco 05/08/24 09:32 e-Cigarette/Vaping Use Never Used 05/08/24 09:32 Thrive Assessment: Date of Thrive Assessment Date Thrive assessed 12/13/23 05/08/24 09:32 Telehealth Telehealth Telehealth Platform: [employer] Location of provider rendering services: practice address Location of patient: address on file Patient Identification confirmed using: Name, : Yes Telehealth method: voice only Patient verbally consented to treatment: Yes Patient verbally consented to billing insurance company: Yes Patient informed of any privacy concerns related to visit: Yes Minutes spent on Phone/Video with Pt.: 14 Assessment and Plan Assessment & Plan (1) Major depression, recurrent: Code(s): F33.9 - Major depressive disorder, recurrent, unspecified Qualifiers: Active/Remission status: currently active Major depression episode severity: severe Psychotic features: without psychotic features Qualified Code(s): F33.2 - Major depressive disorder, recurrent severe without psychotic features (2) Anxiety, generalized: Code(s): F41.1 - Generalized anxiety disorder (3) Chronic GERD: Code(s): K21.9 - Gastro-esophageal reflux disease without esophagitis (4) Weight gain: Code(s): R63.5 - Abnormal weight gain Plan Patient has strong family Hx of sever depression He himself has long history of depression as well Seroquel has helped him, he is tolerating medcation but has gained wt Patient states since dec he has gained about 20 lbs, but it has stablized now he has not gained any more wt since last one month but he dont want to get off the med, as he is doing so well Psychologically GERD is stable with PPI he is also on fenestride for hair lose patient is moving in Aug to different state Coding Level of Care Code Tele Est Pt Level 3 (88960) Diagnoses Severe episode of recurrent major depressive disorder, without psychotic features F33.2 Active/Remission status: currently active Major depression episode severity: severe Psychotic features: without psychotic features Anxiety, generalized F41.1 Chronic GERD K21.9 Weight gain R63.5
== END 2024-05-08 16:48 | disposition home or self-care (01) ==
LOC: HO.HMGC 08:16
PROVIDERS: PCP Internal Medicine; Visit Provider Internal Medicine
DX: K21.9 Gastro-esophageal reflux disease without esophagitis (principal); F33.2 Major depressive disorder, recurrent severe without psychotic features; F41.1 Generalized anxiety disorder; R63.5 Abnormal weight gain
CPT/HCPCS: 99213

== ENCOUNTER 2024-06-10 08:18 | Outpatient (REF) | payer OTHER, SELFPAY ==
[2024-06-10 10:09] LABS: MANUAL DIFF FLAG NO
[2024-06-10 10:17] LABS: Basophils Absolute Auto 0.1 X10*3/uL (0.0-0.2); Eosinophils Absolute Auto 0.1 X10*3/uL (0.0-0.4); Eosinophils Percent Auto 1.4 % (0-4); Hematocrit 43.7 % (42.0-52.0); Hemoglobin 14.8 g/dl (14.0-18.0); Imm Gran Abs Auto 0.03 X10*3/uL (0.00-0.03); Imm Gran Pct Auto 0.4 % (0.0-0.4); Lymphocytes Percent Auto 43.6 % (20-40); Mean Corpuscular HGB Conc 33.9 g/dl (31.0-36.0); Mean Corpuscular Hemoglobin 29.5 pg (27.0-33.0); Mean Corpuscular Volume 87.2 fL (80.0-98.0); Mean Platelet Volume 9.6 fL (9.4-12.4); Monocytes Absolute Auto 0.7 X10*3/uL (0.1-1.2); Monocytes Percent Auto 10.1 % (2-11); Neutrophils Percent Auto 43.5 % (45-73); Platelet Count 278 X10*3/uL (160-400); Red Blood Count 5.01 X10*6/uL (4.60-5.80); Red Cell Distribution Width 12.3 % (11.0-16.0); White Blood Count 6.9 X10*3/uL (4.8-10.8)
[2024-06-10 10:45] LABS: Alanine Aminotransferase 37 U/L (0-40); Albumin Level 4.7 g/dL (3.5-5.0); Alkaline Phosphatase 62 U/L (39-117); Anion Gap 13 (12-20); Aspartate Amino Transferase 17 U/L (5-37); Bilirubin Total 0.6 mg/dL (0.0-1.0); Blood Urea Nitrogen 10 mg/dL (9-16); Carbon Dioxide 28 mmol/L (22-29); Chloride 102 mmol/L (96-108); Estimated Glomerular Filt Rate > 60; Glucose Random 102 mg/dL (60-115); Potassium 3.9 mmol/L (3.3-5.1); Sodium 139 mmol/L (135-145); Total Protein 7.4 g/dL (6.5-8.0)
[2024-06-10 10:48] LABS: TSH reflex Free T4 4.03 uIU/mL (0.32-4.0)
[2024-06-10 12:17] LABS: Free T4 (Free Thyroxine) 1.03 ng/dL (0.71-1.85)
== END 2024-06-10 08:19 | disposition home or self-care (01) ==
LOC: HO.HMGCLDS 08:18
PROVIDERS: PCP Internal Medicine; Visit Provider Internal Medicine
DX: F33.2 Major depressive disorder, recurrent severe without psychotic features (principal); K21.9 Gastro-esophageal reflux disease without esophagitis; F41.1 Generalized anxiety disorder; R63.5 Abnormal weight gain
CPT/HCPCS: 36415; 80053; 84439; 84443; 85025

== ENCOUNTER 2024-06-26 08:04 | Outpatient (AMB) | payer OTHER, SELFPAY ==
--- NOTE | 2024-06-26 09:17 | A.OFFPC_ITS ---
Intake Visit Reasons: Med Concerns~ [phone] Allergies No Known Allergies Allergy (Verified 04/10/24 09:08) Medication List - Last Reconciled 06/26/24 by Irvin Agee MD finasteride 1 mg PO DAILY omeprazole 20 mg PO BID 90 days Tobacco use date assessed: 04/10/24 Dental Screening Dental Screen Date: 04/10/24 HPI Med Concerns~ [phone] HPI Details Patient has long history of depression his Mother also take med for that he was doing well with seroqual, but his work need him to stop med, as it is considered high risk I am tapering off the seroqual , he is on 50 mg at this time, he will start taking half a tab for next 2 wks and then stop i have sent Citalopram 20 mg, continue that for 2 weeks and thend double the dose f.u in 4 wk [facility] Social History Housing: Apartment Patient Tobacco Use Status: Never used Tobacco e-Cigarette/Vaping Use: Never Used Current occupational status: employed Cognitive needs: No Hearing needs: No Vision needs: No Questionnaire Thrive Questionnaire Date Thrive assessed: 12/13/23 DANUTA-7 AMB Questionnaire DANUTA-7 Date DANUTA - 7 assessed: 09/07/23 Source: Developed by Drs. Rich Ramsay, Armida Berg, Isauro Villarreal and colleagues, with an educational gabriel from [employer]. Review of Systems Const Denies chills and Denies fever(s) ENT Denies epistaxis and Denies nasal discharge Card Denies chest pain Resp Denies chest congestion, Denies cough and Denies hemoptysis GI Denies diarrhea and Denies nausea Skin/Breast Denies rash Neuro Reports no additional complaints Psych Reports no additional complaints Endo Reports no additional complaints Physical exam (Primary Care) Tobacco/Smoking Status: Tobacco use Status Tobacco use date assessed 04/10/24 06/26/24 09:19 Patient Tobacco Use Status Never used Tobacco 06/26/24 09:19 e-Cigarette/Vaping Use Never Used 06/26/24 09:19 Thrive Assessment: Date of Thrive Assessment Date Thrive assessed 12/13/23 06/26/24 09:19 Telehealth Telehealth Telehealth Platform: [facility] Location of provider rendering services: practice address Location of patient: address on file Patient Identification confirmed using: Name, : Yes Telehealth method: voice only Patient verbally consented to treatment: Yes Patient verbally consented to billing insurance company: Yes Patient informed of any privacy concerns related to visit: Yes Minutes spent on Phone/Video with Pt.: 14 Assessment and Plan Assessment & Plan (1) Major depression, recurrent: Code(s): F33.9 - Major depressive disorder, recurrent, unspecified Qualifiers: Active/Remission status: currently active Major depression episode severity: severe Psychotic features: without psychotic features Qualified Code(s): F33.2 - Major depressive disorder, recurrent severe without psychotic features (2) Anxiety, generalized: Code(s): F41.1 - Generalized anxiety disorder Plan Patient has long history of depression his Mother also take med for that he was doing well with seroqual, but his work need him to stop med, as it is considered high risk I am tapering off the seroqual , he is on 50 mg at this time, he will start taking half a tab for next 2 wks and then stop i have sent Citalopram 20 mg, continue that for 2 weeks and thend double the dose f.u in 4 wk Medications: New citalopram orally daily; take one tablet daily, and then start 2 tablets daily after 2 weeks 90 tabs 0RF 90 days Coding Level of Care Code Tele Est Pt Level 3 (94261) Diagnoses Severe episode of recurrent major depressive disorder, without psychotic features F33.2 Active/Remission status: currently active Major depression episode severity: severe Psychotic features: without psychotic features Anxiety, generalized F41.1
== END 2024-06-26 09:20 | disposition home or self-care (01) ==
LOC: HO.HMGC 08:05
PROVIDERS: PCP Internal Medicine; Visit Provider Internal Medicine
DX: F33.2 Major depressive disorder, recurrent severe without psychotic features (principal); F41.1 Generalized anxiety disorder
CPT/HCPCS: 99213